=== PATIENT | female | born 1975 ===

== ENCOUNTER 2018-01-23 12:12 | Outpatient (CLI) | payer MEDICAID ==
--- NOTE | 2018-01-24 07:42 | XRay Report ---
FINAL REPORT EXAM: XR KNEE 4+V RT HISTORY: RIGHT KNEE PAIN COMPARISONS: None. FINDINGS: Four views right knee Very mild tricompartmental osteoarthrosis. No fracture, joint effusion or gross malalignment. IMPRESSION: No acute right knee findings. Mild tricompartmental osteoarthrosis.
== END 2018-01-23 12:13 | disposition home or self-care (01) ==
LOC: SPVIMAG 12:12
PROVIDERS: ATTEND Orthopaedic Surgery
DX: M17.11 Unilateral primary osteoarthritis, right knee (principal)